=== PATIENT | female | born 1990 | race Caucasian/White ===

== ENCOUNTER → 2022-01-21 09:51 | Outpatient (BNVA) | payer OTHER, SELFPAY | PROVIDERS: Family Provider Electrodiagnostic Medicine; PCP Family Medicine; Visit Provider Family Medicine | DX: Z00.00 Encounter for general adult medical examination without abnormal findings (principal); Z13.220 Encounter for screening for lipoid disorders; E03.9 Hypothyroidism, unspecified; Z01.419 Encounter for gynecological examination (general) (routine) without abnormal findings | CPT/HCPCS: 80053; 80061; 84439; 84443; 85025; 87624 ==

== ENCOUNTER → 2022-07-04 11:08 | Outpatient (BNVA) | payer OTHER, SELFPAY | PROVIDERS: Family Provider Electrodiagnostic Medicine; PCP Family Medicine; Visit Provider Emergency Medicine | DX: J02.9 Acute pharyngitis, unspecified (principal) | CPT/HCPCS: 87071; 87880 ==

== ENCOUNTER → 2023-08-03 12:37 | Outpatient (BNVA) | payer OTHER, SELFPAY | PROVIDERS: Family Provider Electrodiagnostic Medicine; PCP Family Medicine; Visit Provider Family Medicine | DX: R53.81 Other malaise (principal); R53.83 Other fatigue; Z13.220 Encounter for screening for lipoid disorders; E55.9 Vitamin D deficiency, unspecified | CPT/HCPCS: 80053; 80061; 82306; 84439; 84443; 85025; 87624 ==

== ENCOUNTER 2024-03-23 06:00 | Outpatient (CLI) | payer OTHER, SELFPAY | END 2024-03-23 06:01 | disposition home or self-care (01) | PROVIDERS: Family Provider Electrodiagnostic Medicine; PCP Family Medicine; Visit Provider Family Medicine | DX: Z51.81 Encounter for therapeutic drug level monitoring (principal); R10.2 Pelvic and perineal pain | CPT/HCPCS: 80053; 81000; 81025; 85025; 86141 ==

== ENCOUNTER → 2024-09-04 13:36 | Outpatient (BNVA) | payer OTHER, SELFPAY | PROVIDERS: Family Provider Electrodiagnostic Medicine; PCP Family Medicine; Visit Provider Family Medicine | DX: Z00.00 Encounter for general adult medical examination without abnormal findings (principal); E04.9 Nontoxic goiter, unspecified; Z13.220 Encounter for screening for lipoid disorders; Z51.81 Encounter for therapeutic drug level monitoring | CPT/HCPCS: 80053; 80061; 84439; 84443; 85025 ==

== ENCOUNTER 2024-09-11 16:42 | Outpatient (CLI) | payer OTHER, SELFPAY ==
--- NOTE | 2024-09-11 17:00 | US_ITS ---
WS: [id number] Thyroid ultrasound, 09/11/2024 Clinical Data: Thyroid enlargement Comparison: Thyroid ultrasound, 09/03/2016 Findings: The right lobe of thyroid measures 4.9 cm x 1.9 cm x 1.9 cm. The left lobe measures 5.5 cm x 1.7 cm x 1.8 cm. The isthmus measured 0.1 mm. The echotexture of the thyroid is mixed. There is a right lobe solid nodule measuring 0.5 x 0.6 x 1.2 cm. There are small nodules and cysts bilaterally. US/US thyroid [id number] Impression: Multinodular goiter.
== END 2024-09-11 16:43 | disposition home or self-care (01) ==
PROVIDERS: PCP Family Medicine; Visit Provider Family Medicine
DX: E04.2 Nontoxic multinodular goiter (principal)
CPT/HCPCS: 76536

== ENCOUNTER → 2025-02-24 12:16 | Outpatient (BNVA) | payer OTHER, SELFPAY | PROVIDERS: PCP Family Medicine; Visit Provider Emergency Medicine | DX: M25.522 Pain in left elbow (principal) | CPT/HCPCS: 73080 ==

== ENCOUNTER → 2025-03-22 10:24 | Outpatient (BNVA) | payer OTHER, SELFPAY | PROVIDERS: PCP Family Medicine; Visit Provider Orthopaedic Surgery | DX: M25.522 Pain in left elbow (principal); S56.912A Strain of unspecified muscles, fascia and tendons at forearm level, left arm, initial encounter; W19.XXXA Unspecified fall, initial encounter | CPT/HCPCS: 73080 ==

== ENCOUNTER 2025-04-13 05:00 | Outpatient (RCR) | payer OTHER, SELFPAY | END 2025-04-23 11:14 | disposition home or self-care (01) | LOC: SPT 05:00 | PROVIDERS: Visit Provider Orthopaedic Surgery | DX: M25.522 Pain in left elbow (principal) | CPT/HCPCS: 97110; 97161; 97530 ==